=== PATIENT | male | born 1965 | race Caucasian/White ===

== ENCOUNTER → 2017-03-01 | Outpatient (CLI) | payer BC ==
[2017-03-01 10:24] LABS: ALT 34 U/L (21-72); AST 48 U/L (17-59); Alkaline Phosphatase 56 U/L (38-126); Anion Gap 8 mmol/L; Bilirubin, Delta 0.4 mg/dL (0.0-0.2); Blood Urea Nitrogen 11 mg/dL (9-20); Carbon Dioxide 30 mmol/L (22-30); Chloride 104 mmol/L (98-107); Cholesterol 179 mg/dL (<200); Glucose 121 mg/dL (74-99); HDL Cholesterol 54 mg/dL (40-60); Non-African American GFR(MDRD) >60 (>60 ml/min/1.73 sqM); Potassium 5.3 mmol/L (3.5-5.1); Sodium 142 mmol/L (137-145); Total Bilirubin 0.9 mg/dL (0.2-1.3); Total Protein 7.7 g/dL (6.3-8.2); Triglycerides 181 mg/dL (<150)
[2017-03-01 10:25] LABS: Hemoglobin A1C 7.2 % (4.2-6.1)
== END | disposition home or self-care (01) ==
LOC: LABWHC1 09:17
PROVIDERS: ATTEND Internal Medicine
DX: E78.5 Hyperlipidemia, unspecified (principal); E11.9 Type 2 diabetes mellitus without complications; I10 Essential (primary) hypertension
CPT/HCPCS: 36415; 80051; 80061; 80076; 82565; 82947; 83036; 84520

== ENCOUNTER → 2019-01-25 | Day surgery (SDC) | payer BC ==
[2019-01-20 16:17] VITALS: BMI 29.4
[~2019-01-25] MED LIST: LACTATED RINGERS 1,000 ML IV SCH; LIDOCAINE 1% 20 ML VIAL (10MG/ML) FOR IV START INTRADERMA PRN; LIDOCAINE 1% INJ 10MG/ML (20 ML MDV) ONE; PROPOFOL 10 MG/ML 20 ML VIAL IV ONE
[2019-01-25 07:33] VITALS: TEMP 98.2
[2019-01-25 07:37] LABS: Glucose,Whole Blood 209 mg/dL (75-99)
--- NOTE | 2019-01-25 07:57 | P.GSHP ---
History of Present Illness H&P Date: 01/25/19 Chief Complaint: Screening colonoscopy This is a 53-year-old male who presents today for screening colonoscopy. Patient denies a significant GI complaints. He's never had a colonoscopy before. Past Medical History Past Medical History: Diabetes Mellitus, GERD/Reflux Additional Past Medical History / Comment(s): occasion heartburn, loose stools. History of Any Multi-Drug Resistant Organisms: None Reported Past Surgical History: No Surgical Hx Reported Past Anesthesia/Blood Transfusion Reactions: Motion Sickness Additional Past Anesthesia/Blood Transfusion Reaction / Comment(s): EXTREME MOTION SICKNESS. Past Psychological History: No Psychological Hx Reported Smoking Status: Never smoker Past Alcohol Use History: Occasional Past Drug Use History: None Reported - Past Family History Mother Additional Family Medical History / Comment(s): CABG Medications and Allergies Home Medications Medication Instructions Recorded Confirmed Type Rosuvastatin Calcium [Crestor] 10 mg PO HS 01/20/19 01/20/19 History glipiZIDE [Glucotrol] 10 mg PO BID 01/20/19 01/20/19 History metFORMIN HCL [Glucophage] 1,000 mg PO BID 01/20/19 01/20/19 History Allergies Allergy/AdvReac Type Severity Reaction Status Date / Time camphor [From Vicks Vaporub] Allergy Unknown Unknown Verified 01/20/19 16:09 eucalyptus Allergy Unknown Unknown Verified 01/20/19 16:09 [From Vicks Vaporub] menthol [From Vicks Vaporub] Allergy Unknown Unknown Verified 01/20/19 16:09 petrolatum,white Allergy Unknown Unknown Verified 01/20/19 16:09 [From Vicks Vaporub] turpentine oil Allergy Unknown Unknown Verified 01/20/19 16:09 [From Vicks Vaporub] Surgical - Exam Vital Signs Temp Pulse Resp BP Pulse Ox 98.2 F 89 14 153/86 97 01/25/19 07:32 01/25/19 07:32 01/25/19 07:32 01/25/19 07:32 01/25/19 07:32 - General well developed, well nourished, no distress - Eyes PERRL - ENT normal pinna - Neck no masses - Respiratory normal expansion - Cardiovascular Rhythm: regular - Abdomen Abdomen: soft, non tender Results - Labs Abnormal Lab Results - Last 24 Hours (Table) 03/25/19 Range/Units 07:32 POC Glucose (mg/dL) 209 H (75-99) mg/dL Assessment and Plan Assessment: We'll perform screening colonoscopy.
--- NOTE | 2019-01-25 08:08 | P.OP ---
Date of Procedure: 01/25/19 Preoperative Diagnosis: Screening colonoscopy Postoperative Diagnosis: Normal colon Procedure(s) Performed: Colonoscopy Anesthesia: MAC Surgeon: Carson Garcia Pathology: none sent Condition: stable Disposition: PACU Description of Procedure: PROCEDURE: The patient was placed on the endoscopy table in the lateral position. Digital rectal examination was performed which revealed no abnormalities. The prostate was symmetrical without nodules. Flexible colonoscope was then placed in the patient's anus and passed throughout the entire colon. The ileocecal valve was visualized. The cecum, ascending, transverse, descending and sigmoid colon were normal. The rectum was normal as well. There were no masses, polyps or diverticula noted in the entire colon. SUMMARY OF FINDINGS: Normal colonoscopy.
[2019-01-25 08:12] VITALS: RESP 16
[2019-01-25 08:28] VITALS: BP 128/73; PULSE 72
== END | disposition home or self-care (01) ==
LOC: ORWHC2ENDO 07:16
PROVIDERS: ATTEND Surgery
DX: Z12.11 Encounter for screening for malignant neoplasm of colon (principal); E11.9 Type 2 diabetes mellitus without complications; K21.9 Gastro-esophageal reflux disease without esophagitis; Z79.84 Long term (current) use of oral hypoglycemic drugs; Z79.899 Other long term (current) drug therapy; Z88.8 Allergy status to other drugs, medicaments and biological substances
CPT/HCPCS: J2001; J2704; G0121; 45378

== ENCOUNTER → 2022-08-08 | Outpatient (CLI) | payer BC ==
--- NOTE | 2022-08-09 09:12 | XR ---
EXAMINATION TYPE: XR tibia fibula LT DATE OF EXAM: 08/08/2022 COMPARISON: NONE HISTORY: Pain TECHNIQUE: Two views are submitted. FINDINGS: The osseous structures are intact. The joint spaces are preserved. Well-corticated density adjacent to the tibial tubercle could be related to chronic or remote Mindy-Schlatter disease. IMPRESSION: 1. No acute osseous abnormality.
== END | disposition home or self-care (01) ==
LOC: RADXRMAIN 16:32
PROVIDERS: ATTEND Internal Medicine
DX: M79.605 Pain in left leg (principal)

== ENCOUNTER → 2022-08-08 | Outpatient (CLI) | payer BC ==
--- NOTE | 2022-08-08 16:50 | US ---
EXAMINATION TYPE: US venous doppler duplex LE LT DATE OF EXAM: 08/08/2022 4:28 PM COMPARISON: NONE CLINICAL HISTORY: M79.662 PAIN IN LT LOWER LIMB. SIDE PERFORMED: Left TECHNIQUE: The lower extremity deep venous system is examined utilizing real time linear array sonog renae with graded compression, doppler sonography and color-flow sonography. VESSELS IMAGED: Common Femoral Vein Deep Femoral Vein Greater Saphenous Vein * Femoral Vein Popliteal Vein Small Saphenous Vein * Proximal Calf Veins (* superficial vessels) Left Leg: Negative for DVT Grayscale, color doppler, spectral doppler imaging performed of the deep veins of the left lower extr emity. There is normal flow, compressibility, vascular waveforms. IMPRESSION: No ultrasound evidence for acute DVT in the left lower extremity.
== END | disposition home or self-care (01) ==
LOC: RADUSWWP 16:04
PROVIDERS: ATTEND Internal Medicine
DX: M79.662 Pain in left lower leg (principal)

== ENCOUNTER → 2023-08-12 | Outpatient (CLI) | payer BC ==
[2023-08-12 14:55] LABS: African American GFR (CKD) >90 (>60 ml/min/1.73 sqM); Blood Urea Nitrogen 17 mg/dL (9-20); Non-African American GFR(CKD) >90 (>60 ml/min/1.73 sqM)
--- NOTE | 2023-08-13 10:57 | CT ---
EXAMINATION TYPE: CT urogram wo/w con CT DLP: 1734.2 mGycm, Automated exposure control for dose reduction was used. DATE OF EXAM: 08/12/2023 4:57 PM COMPARISON: . None CLINICAL INDICATION:Male, 57 years old with history of R31.29 OTHER MICROSCOPIC HEMATURIA; PHH, Micro scopic hematuria. TECHNIQUE: Urogram with imaging of the abdomen and pelvis. Coronal and sagittal reformats were performed. 2D and 3D reconstructions are performed to assist visualization of the urinary tract on a separate workstat ion. Contrast used:100 ml mL of Isovue 300 with IV Contrast, Oral contrast used: None. FINDINGS: LOWER CHEST: Right middle lobe 4 mm pulmonary nodule series 6 image 18. Mild coronary artery calcific ations. GENITOURINARY: RIGHT KIDNEY AND URETER: No calculi. No hydronephrosis or hydroureter. No renal mass or other lesions . No urothelial lesions: no filling defect, dilation, stricture or wall thickening. LEFT KIDNEY AND URETER: No calculi. No hydronephrosis or hydroureter. No renal mass or other lesions. No urothelial lesions: no filling defect, dilation, stricture or wall thickening. URINARY BLADDER: Not optimally distended. Limited evaluation secondary to partial filling of the blad tej with excreted IV contrast. No calculi or obvious mass. REPRODUCTIVE: Calcifications of the vas deferens bilaterally. The prostate gland is enlarged measurin g up to 4.6 cm in transverse dimension. ABDOMEN LIVER: Unremarkable. GALLBLADDER AND BILE DUCTS: Unremarkable PANCREAS: Unremarkable. SPLEEN: Unremarkable. ADRENAL GLANDS: Unremarkable. STOMACH AND BOWEL: Colonic diverticulosis. No evidence of bowel traction. The appendix is normal. PERITONEUM: No evidence of pneumoperitoneum, free fluid, or adenopathy. VASCULATURE: Moderate atherosclerotic calcifications are present throughout the abdominal aorta and i ts branches. No evidence of aortic aneurysm. MUSCULOSKELETAL: No acute osseous abnormalities LYMPH NODES: No gross evidence for lymphadenopathy. SOFT TISSUE/ABDOMINAL WALL: Right fat-containing inguinal hernias. IMPRESSION: 1. No evidence of urolithiasis or renal/urothelial neoplasm. 2. Prostatomegaly correlate with serum PSA. 3. Right lower lobe 4 mm pulmonary nodule follow-up in 6-12 months recommended to ensure stability. 4. Colonic diverticulosis. 5. Right fat containing hernia.
== END | disposition home or self-care (01) ==
LOC: RADCTMAIN 14:21
PROVIDERS: ATTEND Internal Medicine
DX: K57.30 Diverticulosis of large intestine without perforation or abscess without bleeding (principal); K40.30 Unilateral inguinal hernia, with obstruction, without gangrene, not specified as recurrent; N40.0 Benign prostatic hyperplasia without lower urinary tract symptoms; R91.1 Solitary pulmonary nodule; R31.29 Other microscopic hematuria
CPT/HCPCS: 82565; 84520; 74178; 36415; 74400; Q9967

== ENCOUNTER → 2023-12-08 | Outpatient (CLI) | payer BC ==
--- NOTE | 2023-12-08 13:03 | CA ---
Exercise Nuclear Stress Test Report Name: Nasir Swanson Exam Date: 12/08/2023 11:02 Exam Location: [place] Stress Ht (in): 70 Wt (lb): 175 BSA: 1.97 Ordering Phys: Gay Dunn MD Referring Phys: Gay Dunn MD Technologist: YOLIE,, Age: 58 Gender: M : 1965 Procedure CPT: 08953 Indications: I25.10 ATHSCL HEART DISEASE OF [place] CORONARY ART ICD-10 Codes: Patient History: Abnormal CT Medications: Meds past 24 hrs: Pretest Chest Pain: STRESS TEST Jamaal Protocol Exercise Duration (min:sec): 12:[address] Depressions (mm): Angina Score: 0 Bailey Score: Resting HR (bpm): 66 Peak HR (bpm): 170 Resting BP (mmHg): 142 / 88 Peak BP (mmHg): 208 / 79 MPHR: 164 Target HR: 139 % MPHR: 104 METS: 12.7 Total Dose: Peak Dose: Atropine: Double Product: 31900 BP Response: Stress Termination: Reached target heart rate Stress Symptoms: No chest pain or symptoms Stress Summary: The patient's target heart rate was achieved, The hemodynamic response to exercise was normal ECG ANALYSIS Resting ECG: Sinus rhythm. Normal conduction. No arrhythmias. Normal repolarization. Stress ECG: Sinus rhythm. Normal conduction. No arrhythmias. [address] upsloping change. CONCLUSIONS 1. Excellent exercise tolerance 2. Borderline positive electrocardiographic stress testing 3. Nuclear images will be reported separately Dr. Austin Traore MD (Electronically Signed) Final Date: 08 December 2023 13:03
--- NOTE | 2023-12-08 14:26 | NM ---
EXAMINATION TYPE: NM stress cardiolite complete DATE OF EXAM: 12/08/2023 COMPARISON: NONE CLINICAL INDICATION: Male, 58 years old with history of I25.10 ATHSCL HEART DISEASE OF [place] CORONAR Y ART; TECHNIQUE: After the intravenous administration of 10.6 mCi Tc 99m Sestamibi - Rest images obtained 112 minutes post injection. The patient exercised using a LANE protocol and 1 minute prior to peak exercise was injected with 25..9 mCi Tc 99m Sestamibi - Stress images obtained 39 minutes post injec tion. FINDINGS: Targeted heart rate was achieved during performance of the study. Review of stress and rest SPECT johnny ges demonstrates no distinct perfusion abnormality. Gated analysis shows normal wall motion with an estimated left ventricular ejection fraction of 69 %. IMPRESSION: No scintigraphic evidence for reversible ischemia
== END | disposition home or self-care (01) ==
LOC: RADNMMAIN 08:22
PROVIDERS: ATTEND Internal Medicine
DX: I25.10 Atherosclerotic heart disease of native coronary artery without angina pectoris (principal)
CPT/HCPCS: 93017; 78452; A9500

== ENCOUNTER → 2023-12-29 | Outpatient (CLI) | payer BC ==
--- NOTE | 2023-12-29 09:15 | US ---
EXAMINATION TYPE: US abd limited kidneys/bladder DATE OF EXAM: 12/29/2023 COMPARISON: NONE CLINICAL INDICATION: Male, 58 years old with history of R31.9 HEMATURIA, UNSPECIFIED N40.0 R31.29; He maturia TECHNIQUE: Multiple sonographic images of the right upper quadrant, bilateral kidneys, and bladder ar e obtained. FINDINGS: EXAM MEASUREMENTS: Liver Length: 14 cm Gallbladder Wall: .2 cm CBD: .3 cm Right Kidney: 11.7 x 5.2 x 5.3 cm Left Kidney: 9.7 x 5.0 x 4.0 cm Pancreas: Obscured by bowel gas Liver: wnl Gallbladder: Polyps visualized . Shadowing mobile gallstones not identified. CBD: wnl Right Kidney: No hydronephrosis or masses seen Left Kidney: No hydronephrosis or masses seen Bladder: anechoic Bilateral Jets Seen Left only IMPRESSION: 1. Gallbladder polyps.
== END | disposition home or self-care (01) ==
LOC: RADUSWWP 07:03
PROVIDERS: ATTEND Internal Medicine
DX: K82.4 Cholesterolosis of gallbladder (principal); N40.0 Benign prostatic hyperplasia without lower urinary tract symptoms; R31.29 Other microscopic hematuria
CPT/HCPCS: 76705; 76770

== ENCOUNTER → 2024-03-06 | Outpatient (CLI) | payer BC | END | disposition home or self-care (01) | LOC: LABWHC1 08:50 | PROVIDERS: ATTEND Internal Medicine | DX: E11.65 Type 2 diabetes mellitus with hyperglycemia (principal) | CPT/HCPCS: 36415; 83036 ==

== ENCOUNTER → 2024-10-20 | Outpatient (CLI) | payer BC ==
[2024-10-20 16:51] LABS: African American GFR (CKD) >90 (>60 ml/min/1.73 sqM); Blood Urea Nitrogen 16 mg/dL (9-20); Non-African American GFR(CKD) >90 (>60 ml/min/1.73 sqM)
--- NOTE | 2024-10-20 18:56 | CT ---
EXAMINATION TYPE: CT chest abdomen w con DATE OF EXAM: 10/20/2024 5:26 PM COMPARISON: 08/12/2023. CLINICAL INDICATION: Male, 58 years old with history of PUL NODULE RIGHT R91.1 K82.8 GALLBLADDER MASS ; PHH, nodules, right sided abdominal pain Technique: CT chest abdomen w con; Multiple axial images were obtained. Two-dimensional coronal and s agittal reconstructions were obtained. Contrast used:100 mL of Isovue 300 with IV Contrast, (None if empty) Oral contrast used: with Oral Contrast CT DLP: 609.2 mGycm, Automated exposure control for dose reduction was used. Findings: CHEST: LUNGS/ PLEURA: No focal consolidation, pneumothorax or pleural effusion. AIRWAY: Patent and unremarkable. HEART: Size within normal limits. MEDIASTINUM: No gross evidence of adenopathy. VASCULATURE: No aortic aneurysm. MUSCULOSKELETAL: No acute osseous abnormalities. SOFT TISSUES/LYMPH NODES: Unremarkable. LOWER NECK: No significant findings. ABDOMEN: ABDOMEN LIVER: Diffuse low-attenuation to the liver parenchyma. GALLBLADDER AND BILE DUCTS: No gallbladder masses definitively visualized. PANCREAS: Unremarkable. SPLEEN: Unremarkable. ADRENAL GLANDS: Unremarkable. KIDNEYS AND URETERS: No evidence of hydronephrosis or renal calculus. The ureters are unremarkable. STOMACH AND BOWEL: No evidence of bowel obstruction. Appendix is not in the [id number]-qeju. PERITONEUM/RETROPERITONEUM: No evidence of pneumoperitoneum or free fluid. VASCULATURE: Mild atherosclerotic calcifications are present throughout the abdominal aorta and its b ranches. No evidence of aortic aneurysm. MUSCULOSKELETAL: No acute osseous abnormalities LYMPH NODES: No gross evidence for lymphadenopathy. SOFT TISSUE/ABDOMINAL WALL: Unremarkable IMPRESSION: 1. No evidence for acute abdominal process. The pelvis is not in the [id number]-bmhl. 2. No gallbladder masses definitively visualized on CT imaging. Consider imaging with MRI Hepatic st eatosis. 3. No clinically significant pulmonary nodules. 4. No evidence for acute thoracic process. 5. The appendix is non the [id number]. [facility], , 10/20/2024 6:54 PM
== END | disposition home or self-care (01) ==
LOC: RADCTMAIN 16:01
PROVIDERS: ATTEND Internal Medicine
DX: K82.8 Other specified diseases of gallbladder (principal); R91.1 Solitary pulmonary nodule
CPT/HCPCS: 82565; 84520; 71260; 74160; 36415; Q9967